=== PATIENT | male | born 1980 | race African-American/Black ===

== ENCOUNTER 2018-01-21 15:37 | Emergency (ER) | payer OTHER ==
[2018-01-21] MEDS ORDERED: Benzonatate 100 MG CAP ONE (16:07)
[2018-01-21] MEDS ORDERED: HYDROcodone/Acetaminophen 7.5/325 mg Tablet ONE (16:32)
== END 2018-01-21 16:42 | disposition home or self-care (01) ==
LOC: ERS 15:37
DX: K02.9 Dental caries, unspecified (principal)
CPT/HCPCS: 99282